=== PATIENT | male | born 1955 | race Hispanic/Latino ===

== ENCOUNTER 2016-11-28 19:30 | Emergency (ER) | payer OTHER ==
[2016-11-28 19:46] VITALS: BP 130/84; PULSE 80; RESP 18; TEMP 100.7; O2SAT 100
[2016-11-28] MEDS ORDERED: Sodium Chloride 0.9% 1,000 ML IV STA (20:09)
[2016-11-28 20:30] LABS: URINE BACTERIA OCC (<OCC); URINE BILIRUBIN NEGATIVE (NEGATIVE); URINE BLOOD LARGE (NEGATIVE); URINE CLARITY SLIGHTY-CLOUDY (Clear); URINE COLOR YELLOW (YELLOW); URINE GLUCOSE (UA) NEG (Normal); URINE LEUKOCYTE ESTERASE MOD Leu/uL (Negative); URINE NITRATE NEGATIVE (NEGATIVE); URINE PROTEIN 100 mg/dL (NEGATIVE); URINE UROBILINOGEN 0.2-1.0 mg/dL (0.2-1.0)
[2016-11-28] MEDS ORDERED: cefTRIAXone (Rocephin) 1 gm Inj ONE (20:34)
[2016-11-28 20:40] LABS: BASO # 0.1 K/uL (0.0-0.2); BASO % 0.4 % (0.0-2.0); EOS % 0.1 % (0.0-4.0); HEMOGLOBIN 13.8 g/dL (12.0-18.0); LYMPH # 1.7 K/uL (1.0-4.3); LYMPH % 10.1 % (20.0-40.0); MEAN CELL VOLUME 93.3 fl (80.0-94.0); MEAN CORPUSCULAR HEMOGLOBIN 30.9 pg (27.0-31.0); MEAN CORPUSCULAR HGB CONC 33.2 g/dL (33.0-37.0); MEAN PLATELET VOLUME 9.6 fl (7.2-11.7); MONO # 1.3 K/uL (0.0-0.8); NEUT # 13.5 K/uL (1.8-7.0); NEUT % 81.4 % (50.0-75.0); RBC 4.44 Mil/uL (4.40-5.90); RED CELL DISTRIBUTION WIDTH 13.5 % (11.5-14.5); WHITE BLOOD COUNT 16.5 K/uL (4.8-10.8)
--- NOTE | 2016-11-28 20:45 | ED PDOC ---
HPI: General Adult Time Seen by Provider: 11/28/16 19:52 Chief Complaint (Nursing): Male Genitourinary Chief Complaint (Provider): Fever, chills History Per: Patient History/Exam Limitations: no limitations Onset/Duration Of Symptoms: Days (1) Have you had recent travel within the past 21 days to any of the following countries: [place], [place], [place] or [place]?: No Current Symptoms Are (Timing): Still Present Additional History Per: Patient Additional Complaint(s): The patient is a 61yo male, presents to the ED for evaluation of subjective fever, chills for the past day. Patient states he has had a scheduled cystoscopy 4 days ago after which he was fine; patient reports his symptoms presented last night but denies any associated nausea, vomiting, diarrhea, abdominal pain, chest pain, dysuria, or shortness of breath. Patient has noticed that urine is darker than he previously noticed. Patient denies any other medical complaints. Of note, patient is currently taking Cialis for erectile dysfunction. Past Medical History Reviewed: Historical Data, Nursing Documentation, Vital Signs Vital Signs: Last Vital Signs Temp 100.7 F H 11/28/16 20:29 Pulse 80 11/28/16 19:42 Resp 18 11/28/16 19:42 BP 130/84 11/28/16 19:42 Pulse Ox 100 11/28/16 21:12 - Medical History PMH: No Chronic Diseases - Surgical History Other surgeries: cystoscopy - Family History Family History: States: Unknown Family Hx - Social History Current smoker - smoking cessation education provided: No Alcohol: Occasional Drugs: Denies - Home Medications Home Medications: Ambulatory Orders Medication Instructions Recorded Ciprofloxacin [Cipro] 500 mg PO Q12 #20 tab 11/28/16 - Allergies Allergies/Adverse Reactions: Allergies Allergy/AdvReac Type Severity Reaction Status Date / Time No Known Allergies Allergy Verified 11/28/16 20:01 Review of Systems Constitutional: Positive for: Fever, Chills Respiratory: Negative for: Shortness of Breath Gastrointestinal: Negative for: Nausea, Vomiting, Abdominal Pain, Diarrhea Physical Exam - Reviewed Nursing Documentation Reviewed: Yes Vital Signs Reviewed: Yes - Physical Exam Appears: Positive for: Well, Non-toxic, No Acute Distress Head Exam: Positive for: ATRAUMATIC, NORMAL INSPECTION, NORMOCEPHALIC Skin: Positive for: Normal Color Eye Exam: Positive for: Normal appearance Neck: Positive for: Normal, Supple Cardiovascular/Chest: Positive for: Regular Rate, Rhythm Respiratory: Positive for: Normal Breath Sounds. Negative for: Wheezing Gastrointestinal/Abdominal: Positive for: Normal Exam, Soft. Negative for: Tenderness Extremity: Positive for: Normal ROM. Negative for: Deformity, Swelling Neurologic/Psych: Positive for: Alert, Oriented - Laboratory Results Result Diagrams: 11/28/16 20:30 11/28/16 20:30 - ECG O2 Sat by Pulse Oximetry: 100 (RA) Pulse Ox Interpretation: Normal Medical Decision Making Medical Decision Making: Time: 1799 Impression: 61yo male w/ fever, chills in setting of recent cystoscopy Plan: -- Labs -- IV Fluids -- Urine dipstick Reassess Time: 2039 Urine dipstick shows urinary infection. Ordered IV Rocephin Time: 2110 Labs reviewed and show elevated white count. Patient informed of lab results and denies any flank pain, no tenderness upon exam. States he feels well enough for discharge home. Patient informed should he develop flank pain or his symptoms worsen, return to ED for further testing and possible admission. Patient agreeable to plan. Final diagnosis: UTI Scribe Attestation: Documented by La Nena Sheriff acting as a scribe for Po Lizama MD. Provider Attestation: All medical record entries made by the Scribe were at my direction and personally dictated by me. I have reviewed the chart and agree that the record accurately reflects my personal performance of the history, physical exam, medical decision making, and the department course for this patient. I have also personally directed, reviewed, and agree with the discharge instructions and disposition. Disposition - Clinical Impression Clinical Impression: Urinary tract infection - Disposition Disposition Time: 21:00 Condition: STABLE Prescriptions: Ciprofloxacin [Cipro] 500 mg PO Q12 #20 tab Instructions: Cystoscopy (GEN), Urinary Tract Infection in Men (ED)
[2016-11-28 20:48] LABS: ALB/GLOB RATIO 1.2 (1.0-2.1); ALBUMIN 4.2 g/dL (3.5-5.0); ALT/SGPT 36 U/L (21-72); AST/SGOT 24 U/L (17-59); BLOOD UREA NITROGEN 14 mg/dl (9-20); GFR AFRICAN-AMERICAN > 60; GFR NON-AFRICAN AMERICAN > 60
== END 2016-11-28 21:00 | disposition home or self-care (01) ==
LOC: H.ER 19:30
DX: N39.0 Urinary tract infection, site not specified (principal)

== ENCOUNTER 2016-12-01 13:14 | Inpatient (IN) | payer OTHER ==
[2016-12-01] MEDS ORDERED: Meropenem 1 GM in Sodium Chloride 0.9% 100 ML IVPB STA (13:31)
--- NOTE | 2016-12-01 14:11 | ED PDOC ---
HPI: General Adult Time Seen by Provider: 12/01/16 14:09 Chief Complaint (Nursing): Fever Chief Complaint (Provider): uti History Per: Patient (61 y/o male here with urinary discomfort developed after cystoscopy last week. Patient has had fevers/chills and was started on cipro in ED for uti. Patient notes persistent dysuria but notes improvement of fever. Has no h/o prior UTI. States cystoscopy was for investigation of ongoing hematuria for months. Patient was called today b/c urine cx results note resistance to cipro and many other antibiotics, with exception of imepenem/ tig/amikacin.) Past Medical History Reviewed: Historical Data, Nursing Documentation, Vital Signs Vital Signs: Last Vital Signs Temp 98.8 F 12/02/16 16:06 Pulse 55 L 12/02/16 16:06 Resp 18 12/02/16 16:06 BP 119/80 12/02/16 16:06 Pulse Ox 98 12/02/16 16:06 - Family History Family History: States: Unknown Family Hx - Home Medications Home Medications: Ambulatory Orders Medication Instructions Recorded Omeprazole 20 mg PO DAILY 12/01/16 Tadalafil [Cialis] 5 mg PO PRN PRN 12/01/16 Ertapenem 1gm in NS 50ml [Invanz] 1 gm IV DAILY #10 bag 12/02/16 - Allergies Allergies/Adverse Reactions: Allergies Allergy/AdvReac Type Severity Reaction Status Date / Time No Known Allergies Allergy Verified 11/28/16 20:01 Review of Systems ROS Statement: Except As Marked, All Systems Reviewed And Found Negative Physical Exam - Reviewed Nursing Documentation Reviewed: Yes Vital Signs Reviewed: Yes - Physical Exam Appears: Positive for: Well, Non-toxic, No Acute Distress Head Exam: Positive for: ATRAUMATIC, NORMAL INSPECTION, NORMOCEPHALIC Skin: Positive for: Normal Color, Warm, DRY Eye Exam: Positive for: EOMI, Normal appearance, PERRL ENT: Positive for: Normal ENT Inspection Neck: Positive for: Normal, Painless ROM Cardiovascular/Chest: Positive for: Regular Rate, Rhythm Respiratory: Positive for: CNT, Normal Breath Sounds Gastrointestinal/Abdominal: Positive for: Normal Exam, Bowel Sounds, Soft Back: Positive for: Normal Inspection Extremity: Positive for: Normal ROM Neurologic/Psych: Positive for: Alert, Oriented - Laboratory Results Result Diagrams: 12/02/16 06:26 12/02/16 06:26 - ECG O2 Sat by Pulse Oximetry: 100 - Progress ED Course And Treament: D/W DR. DARIUS CASTILLO MEROPENEM [address] ABD/PELVIS WITHOUT IV OR PO CONTRAST ORDERED FOR EVALUATION OF BUN/ CREATININE AND ONGOING HEMATURIA. D/W DR. KAUFMAN CARBIDE OPERATOR FOR [facility] WOULD LIKE NEPHROLOGY CONSULT. Medical Decision Making Medical Decision Making: Time: 16:22 --Abdomen/pelvis CT FINDINGS: There is limited evaluation of the solid organs without the administration of IV contrast. LOWER THORAX: Bibasilar atelectasis. No visible pleural effusion or pneumothorax. Small hiatal hernia/ distal esophageal wall thickening. LIVER: Unremarkable unenhanced appearance. GALLBLADDER AND BILE DUCTS: Unremarkable unenhanced appearance. PANCREAS: Unremarkable unenhanced appearance. SPLEEN: Unremarkable unenhanced appearance. ADRENALS: Unremarkable unenhanced appearance. KIDNEYS AND URETERS: No hydronephrosis or obstructing renal calculus. BLADDER: Mild wall thickening; correlate with urinalysis in order to assess for possibility of cystitis. REPRODUCTIVE: The prostate gland measures approximately 4.1 x 4.8 cm. APPENDIX: The presumed appendix appears within normal limits of caliber. No secondary signs of acute appendicitis. BOWEL: The stomach is nondistended. Lack of oral contrast limits evaluation for bowel pathology. The bowel loops appear within normal limits of caliber without evidence of intestinal obstruction. Diverticulosis without CT evidence of acute diverticulitis. Moderate constipation. PERITONEUM: No significant free fluid. No definite free air. LYMPH NODES: No bulky lymphadenopathy identified. VASCULATURE: No aortic aneurysm. BONES: Multilevel degenerative changes. Mild scoliosis. Grade 1 anterolisthesis of L5 on S1. Vacuum disc phenomenon at L4-L5 and L5-S1. OTHER FINDINGS: Tiny fat containing umbilical hernia. IMPRESSION: Mild urinary bladder wall thickening ; correlate with urinalysis in order to assess for possibility of cystitis. Enlarged prostate gland. Correlate with PSA. Diverticulosis without CT evidence of acute diverticulitis. Additional findings as above. Disposition - Clinical Impression Clinical Impression: Urinary tract infection - Patient ED Disposition Is Patient to be Admitted: Yes - Disposition Disposition Time: 16:20 Condition: GOOD - Pt Status Changed To: Hospital Disposition Of: Inpatient - Admit Certification Admit to Inpatient:: After my assessment, the patient will require hospitalization for at least two midnights. This is because of the severity of symptoms shown, intensity of services needed, and/or the medical risk in this patient being treated as an outpatient.
[2016-12-01 14:20] LABS: VENOUS BLOOD GAS BASE EXCESS 4.2 mmol/L (0.0-2.0); VENOUS BLOOD GAS PCO2 55 mmHg (40-60); VENOUS BLOOD GAS PO2 16 mm/Hg (30-55); VENOUS BLOOD PH 7.36 (7.32-7.43)
[2016-12-01 15:03] LABS: BASO # 0.1 K/uL (0.0-0.2); BASO % 0.6 % (0.0-2.0); EOS # 0.2 K/uL (0.0-0.7); EOS % 1.8 % (0.0-4.0); LYMPH # 1.9 K/uL (1.0-4.3); LYMPH % 16.8 % (20.0-40.0); MEAN CELL VOLUME 93.4 fl (80.0-94.0); MEAN CORPUSCULAR HEMOGLOBIN 31.6 pg (27.0-31.0); MEAN CORPUSCULAR HGB CONC 33.8 g/dL (33.0-37.0); MEAN PLATELET VOLUME 9.9 fl (7.2-11.7); MONO # 1.1 K/uL (0.0-0.8); MONO % 10.1 % (0.0-10.0); NEUT # 7.8 K/uL (1.8-7.0); NEUT % 70.7 % (50.0-75.0); RBC 4.12 Mil/uL (4.40-5.90); RED CELL DISTRIBUTION WIDTH 13.3 % (11.5-14.5); WHITE BLOOD COUNT 11.1 K/uL (4.8-10.8)
[2016-12-01 15:12] LABS: ALB/GLOB RATIO 1.1 (1.0-2.1); ALBUMIN 4.1 g/dL (3.5-5.0); CALCIUM 9.6 mg/dL (8.4-10.2)
[2016-12-01] MEDS ORDERED: Sodium Chloride 0.9% 1,000 ML IV STA (15:16)
[2016-12-01 15:35] LABS: URINE BACTERIA RARE (<OCC); URINE BILIRUBIN NEGATIVE (NEGATIVE); URINE BLOOD LARGE (NEGATIVE); URINE CLARITY CLOUDY (Clear); URINE COLOR YELLOW (YELLOW); URINE GLUCOSE (UA) NEG (Normal); URINE LEUKOCYTE ESTERASE TRACE Leu/uL (Negative); URINE NITRATE NEGATIVE (NEGATIVE); URINE PROTEIN 100 mg/dL (NEGATIVE); URINE UROBILINOGEN 0.2-1.0 mg/dL (0.2-1.0)
--- NOTE | 2016-12-01 16:35 | CT ---
PROCEDURE: CT Abdomen and Pelvis without Oral or IV contrast. HISTORY: h/o intermittent hematuria/ UTI this week COMPARISON: None available. TECHNIQUE: Contiguous axial images of the abdomen and pelvis. No oral or IV contrast administered. Coronal and Sagittal reformats generated and reviewed. Radiation dose: Total exam DLP = 564.78 mGy-cm. This CT exam was performed using one or more of the following dose reduction techniques: Automated exposure control, adjustment of the mA and/or kV according to patient size, and/or use of iterative reconstruction technique. FINDINGS: There is limited evaluation of the solid organs without the administration of IV contrast. LOWER THORAX: Bibasilar atelectasis. No visible pleural effusion or pneumothorax. Small hiatal hernia/ distal esophageal wall thickening. LIVER: Unremarkable unenhanced appearance. GALLBLADDER AND BILE DUCTS: Unremarkable unenhanced appearance. PANCREAS: Unremarkable unenhanced appearance. SPLEEN: Unremarkable unenhanced appearance. ADRENALS: Unremarkable unenhanced appearance. KIDNEYS AND URETERS: No hydronephrosis or obstructing renal calculus. BLADDER: Mild wall thickening; correlate with urinalysis in order to assess for possibility of cystitis. REPRODUCTIVE: The prostate gland measures approximately 4.1 x 4.8 cm. APPENDIX: The presumed appendix appears within normal limits of caliber. No secondary signs of acute appendicitis. BOWEL: The stomach is nondistended. Lack of oral contrast limits evaluation for bowel pathology. The bowel loops appear within normal limits of caliber without evidence of intestinal obstruction. Diverticulosis without CT evidence of acute diverticulitis. Moderate constipation. PERITONEUM: No significant free fluid. No definite free air. LYMPH NODES: No bulky lymphadenopathy identified. VASCULATURE: No aortic aneurysm. BONES: Multilevel degenerative changes. Mild scoliosis. Grade 1 anterolisthesis of L5 on S1. Vacuum disc phenomenon at L4-L5 and L5-S1. OTHER FINDINGS: Tiny fat containing umbilical hernia. IMPRESSION: Mild urinary bladder wall thickening ; correlate with urinalysis in order to assess for possibility of cystitis. Enlarged prostate gland. Correlate with PSA. Diverticulosis without CT evidence of acute diverticulitis. Additional findings as above.
[2016-12-02] MEDS: Meropenem 1 GM in Sodium Chloride 0.9% 100 ML IVPB SCH ×2 (02:09→09:08)
[2016-12-02 06:49] LABS: HEMOGLOBIN 12.4 g/dL (12.0-18.0); MEAN CORPUSCULAR HEMOGLOBIN 32.1 pg (27.0-31.0); MEAN CORPUSCULAR HGB CONC 34.2 g/dL (33.0-37.0); RBC 3.87 Mil/uL (4.40-5.90); RED CELL DISTRIBUTION WIDTH 12.9 % (11.5-14.5); WHITE BLOOD COUNT 8.9 K/uL (4.8-10.8)
[2016-12-02 08:19] LABS: ALB/GLOB RATIO 1.1 (1.0-2.1); ALBUMIN 3.4 g/dL (3.5-5.0); CALCIUM 8.7 mg/dL (8.4-10.2)
[2016-12-02] MEDS ORDERED: Pantoprazole 20 mg EC Tab PO SCH (09:00)
--- NOTE | 2016-12-02 09:01 | CP.PCM.HP ---
History of Present Illness - History of Present Illness History of Present Illness: pt admitted for esbl in previous urine c/s. at present is w/o complaints. no f/c , n/v/d. admission bun/cr was elev but am bun/cr wnl. pts uti was 2 to cystoscopy which was completed for hematuria. Present on Admission - Present on Admission Any Indicators Present on Admission: No Review of Systems - Genitourinary Genitourinary: As Per HPI Past Patient History - Infectious Disease Hx of Infectious Diseases: None - Past Medical History & Family History Past Medical History?: No - Past Social History Smoking Status: Never Smoked - CARDIAC Hx Cardiac Disorders: No - NEUROLOGICAL Hx Neurological Disorder: No - HEMATOLOGICAL/ONCOLOGICAL Hx Blood Disorders: No - MUSCULOSKELETAL/RHEUMATOLOGICAL Hx Falls: No - GASTROINTESTINAL Hx Gastroesophageal Reflux: Yes - PSYCHIATRIC Hx Substance Use: Yes Meds Allergies/Adverse Reactions: Allergies Allergy/AdvReac Type Severity Reaction Status Date / Time No Known Allergies Allergy Verified 11/28/16 20:01 Physical Exam - Constitutional Appears: Well, Non-toxic, No Acute Distress - Head Exam Head Exam: ATRAUMATIC, NORMAL INSPECTION, NORMOCEPHALIC - Eye Exam Eye Exam: EOMI, Normal appearance, PERRL Pupil Exam: NORMAL ACCOMODATION, PERRL - ENT Exam ENT Exam: Mucous Membranes Moist, Normal Exam - Neck Exam Neck exam: Positive for: Normal Inspection - Respiratory Exam Respiratory Exam: Clear to Auscultation Bilateral, NORMAL BREATHING PATTERN - Cardiovascular Exam Cardiovascular Exam: REGULAR RHYTHM, RRR, +S1, +S2 - GI/Abdominal Exam GI & Abdominal Exam: Normal Bowel Sounds, Soft. absent: Tenderness - Extremities Exam Extremities exam: Positive for: normal inspection - Back Exam Back exam: NORMAL INSPECTION - Neurological Exam Neurological exam: Alert, CN II-XII Intact, Normal Gait, Oriented x3, Reflexes Normal - Psychiatric Exam Psychiatric exam: Normal Affect, Normal Mood - Skin Skin Exam: Dry, Intact, Normal Color, Warm Results - Vital Signs Recent Vital Signs: Last Vital Signs Temp 98 F 12/02/16 07:46 Pulse 54 L 12/02/16 07:46 Resp 18 12/02/16 07:46 BP 121/81 12/02/16 07:46 Pulse Ox 98 12/02/16 07:46 - Labs Result Diagrams: 12/02/16 06:26 12/02/16 06:26 Labs: Laboratory Results - last 24 hr 12/02/16 12/02/16 06:26 06:26 WBC 8.9 RBC 3.87 L Hgb 12.4 Hct 36.3 MCV 94.0 MCH 32.1 H MCHC 34.2 RDW 12.9 Plt Count 163 Sodium 143 Potassium 3.9 Chloride 108 H Carbon Dioxide 26 Anion Gap 13 BUN 20 Creatinine 1.5 Est GFR ( Amer) 58 Est GFR (Non-Af Amer) 48 Random Glucose 85 Calcium 8.7 Total Bilirubin 0.5 AST 19 ALT 29 Alkaline Phosphatase 44 Total Protein 6.5 Albumin 3.4 L Globulin 3.1 Albumin/Globulin Ratio 1.1 Assessment & Plan (1) DVT prophylaxis Assessment and Plan: scd anad ae hose ambualtion Status: Acute (2) Urinary tract infection Assessment and Plan: merrem for esbl, f/u repaat c/s id and nephro consult ivf Status: Acute (3) Dehydration Assessment and Plan: bun/cr normalized, ivf Status: Acute Decision To Admit - Pt Status Changed To: Hospital Disposition Of: Inpatient - Admit Certification Admit to Inpatient:: After my assessment, the patient will require hospitalization for at least two midnights. This is because of the severity of symptoms shown, intensity of services needed, and/or the medical risk in this patient being treated as an outpatient. - . Bed Request Type: Med/Surg Admitting Physician: Liu Lopez
--- NOTE | 2016-12-02 09:23 | CP.PCM.CON ---
History of Present Illness - History of Present Illness History of Present Illness: Patient is a 61 years of age gentleman, I was called to see him for abnormal kidney function rising BUN/creatinine. This patient who had cystoscope last week and subsequently patient developed fever and malaise weakness for which she was admitted and was fond to have high BUN/creatinine and infection. Patient treated with appropriate antibiotics in the hospital now. He was treated with outpatient antibiotics but patient took one dose and also pain medication 1 or 2 doses he does not know the name Past medical history not significant Social history appears to be not significant except what has been mentioned Review of system as noted Review of Systems - EENT Eyes: As Per HPI Ears: As Per HPI - Cardiovascular Cardiovascular: absent: Chest Pain, Dyspnea, Edema - Respiratory Respiratory: absent: Cough, Dyspnea, Dyspnea on Exertion - Gastrointestinal Gastrointestinal: absent: Abdominal Pain, Coffee Ground Emesis - Genitourinary Genitourinary: Change in Urinary Stream. absent: Urinary Urgency - Neurological Neurological: absent: Abnormal Gait, Confusion, Syncope - Endocrine Endocrine: As Per HPI - Hematologic/Lymphatic Hematologic: absent: Easy Bruising Past Patient History - Infectious Disease Hx of Infectious Diseases: None - Past Medical History & Family History Past Medical History?: No - Past Social History Smoking Status: Never Smoked - CARDIAC Hx Cardiac Disorders: No - NEUROLOGICAL Hx Neurological Disorder: No - HEMATOLOGICAL/ONCOLOGICAL Hx Blood Disorders: No - MUSCULOSKELETAL/RHEUMATOLOGICAL Hx Falls: No - GASTROINTESTINAL Hx Gastroesophageal Reflux: Yes - PSYCHIATRIC Hx Substance Use: Yes Meds Allergies/Adverse Reactions: Allergies Allergy/AdvReac Type Severity Reaction Status Date / Time No Known Allergies Allergy Verified 11/28/16 20:01 - Medications Medications: Current Medications Acetaminophen (Tylenol 325mg Tab) 650 mg PO Q4 PRN PRN Reason: Pain, moderate (4-7) Acetaminophen (Tylenol 325mg Tab) 650 mg PO Q4 PRN PRN Reason: Fever >100.4 F Meropenem 1 gm/ Sodium (Chloride) 100 mls @ 100 mls/hr IVPB BID [facility] Last Admin: 12/02/16 09:08 Dose: 100 mls/hr Pantoprazole Sodium (Protonix Ec Tab) 20 mg PO DAILY [facility] Last Admin: 12/02/16 09:08 Dose: 20 mg Physical Exam - Constitutional Appears: No Acute Distress - ENT Exam ENT Exam: Mucous Membranes Moist - Respiratory Exam Respiratory Exam: NORMAL BREATHING PATTERN. absent: Chest Wall Tenderness - Cardiovascular Exam Cardiovascular Exam: REGULAR RHYTHM - GI/Abdominal Exam GI & Abdominal Exam: Normal Bowel Sounds - Extremities Exam Extremities exam: Negative for: calf tenderness, pedal edema - Back Exam Back exam: absent: CVA tenderness (L), CVA tenderness (R) - Neurological Exam Neurological exam: Alert Results - Vital Signs Recent Vital Signs: Last Vital Signs Temp 98 F 12/02/16 07:46 Pulse 54 L 12/02/16 07:46 Resp 18 12/02/16 07:46 BP 121/81 12/02/16 07:46 Pulse Ox 98 12/02/16 07:46 - Labs Result Diagrams: 12/02/16 06:26 12/02/16 06:26 Labs: Laboratory Results - last 24 hr 12/02/16 12/02/16 06:26 06:26 WBC 8.9 RBC 3.87 L Hgb 12.4 Hct 36.3 MCV 94.0 MCH 32.1 H MCHC 34.2 RDW 12.9 Plt Count 163 Sodium 143 Potassium 3.9 Chloride 108 H Carbon Dioxide 26 Anion Gap 13 BUN 20 Creatinine 1.5 Est GFR ( Amer) 58 Est GFR (Non-Af Amer) 48 Random Glucose 85 Calcium 8.7 Total Bilirubin 0.5 AST 19 ALT 29 Alkaline Phosphatase 44 Total Protein 6.5 Albumin 3.4 L Globulin 3.1 Albumin/Globulin Ratio 1.1 Assessment & Plan (1) Acute kidney injury Assessment and Plan: Patient most likely has acute kidney injury from urosepsis and he appeared to be recovering and responded to antibiotics Patient requesting to go home and he can have the appropriate antibiotics as outpatient Repeat kidney function and BMP in about 2 days just to make sure as outpatient if he decides to go home. Status: Acute (2) Urinary tract infection Status: Acute
--- NOTE | 2016-12-02 10:56 | CP.PCM.CON ---
History of Present Illness - History of Present Illness History of Present Illness: Infectious Disease Consultation Note- asked to see this patient fro ESBL UTI. HPI- Patient is a pleasant 61 year old male with no significant pmh who states since april of last year he has been having microscopic hemature and has been having w/u done for this by his urologist in [facility] and all w/u has so far been negative and he states that a week ago he had cystoscopy done and he as told it did not reveal anything bad and then few days after the procedure he developed malaise, fever and chills and some dysurea and hence he came to ED here and was found to have + Ua and as d/c on oral cipro but then pt. sattes he was called by ED to come back to be admitted bc his urine cx had grown ESBL klebsiella and also pt. states his symptoms had not improved at all on the oral cipro and he continued to have dysurea and chills . Pt. denies any h/o kidney stones and denies having any h/o UTI in the past. Pt. denies any fever or chills now and state he does not have any abdomen or flank pain but he still has slight dysurea. Review of Systems - Review of Systems Review of Systems: ROS- denies any fever or chills now but had it at home for past 3 days, denies any N/ V, denies any cough, denies any sob, denies any chest pain, denies any abd. pain , denies any back pain, + dysurea, had malaise but states has resolved denies any diarrhea denies any sick contacts Past Patient History - Infectious Disease Hx of Infectious Diseases: None - Past Medical History & Family History Past Medical History?: No - Past Social History Smoking Status: Never Smoked Alcohol: Social Home Situation {Lives}: With Family - CARDIAC Hx Cardiac Disorders: No - PULMONARY Hx Respiratory Disorders: No - NEUROLOGICAL Hx Neurological Disorder: No - HEENT Hx HEENT Problems: No - RENAL Hx Chronic Kidney Disease: No - HEMATOLOGICAL/ONCOLOGICAL Hx Blood Disorders: No - MUSCULOSKELETAL/RHEUMATOLOGICAL Hx Falls: No - GASTROINTESTINAL Hx Gastroesophageal Reflux: Yes - PSYCHIATRIC Hx Substance Use: Yes Meds Home Medications: Home Medication List Medication Instructions Recorded Confirmed Type Ertapenem 1gm in NS 50ml [Invanz] 1 gm IV DAILY #10 bag 12/02/16 Rx Allergies/Adverse Reactions: Allergies Allergy/AdvReac Type Severity Reaction Status Date / Time No Known Allergies Allergy Verified 11/28/16 20:01 - Medications Medications: Current Medications Acetaminophen (Tylenol 325mg Tab) 650 mg PO Q4 PRN PRN Reason: Pain, moderate (4-7) Acetaminophen (Tylenol 325mg Tab) 650 mg PO Q4 PRN PRN Reason: Fever >100.4 F Meropenem 1 gm/ Sodium (Chloride) 100 mls @ 100 mls/hr IVPB BID [facility] Last Admin: 12/02/16 09:08 Dose: 100 mls/hr Pantoprazole Sodium (Protonix Ec Tab) 20 mg PO DAILY [facility] Last Admin: 12/02/16 09:08 Dose: 20 mg Physical Exam - Constitutional Appears: Non-toxic, No Acute Distress - Head Exam Head Exam: ATRAUMATIC - Eye Exam Eye Exam: EOMI, PERRL - ENT Exam ENT Exam: Normal Oropharynx - Neck Exam Neck exam: Positive for: Full Rom - Respiratory Exam Respiratory Exam: Clear to Auscultation Bilateral, NORMAL BREATHING PATTERN - Cardiovascular Exam Cardiovascular Exam: RRR, +S1, +S2 - GI/Abdominal Exam GI & Abdominal Exam: Normal Bowel Sounds, Soft Additional comments: NT, ND No CVA tenderness b/l - Extremities Exam Extremities exam: Positive for: normal inspection - Neurological Exam Neurological exam: Alert, Oriented x3 Results - Vital Signs Recent Vital Signs: Last Vital Signs Temp 98 F 12/02/16 07:46 Pulse 54 L 12/02/16 07:46 Resp 18 12/02/16 07:46 BP 121/81 12/02/16 07:46 Pulse Ox 98 12/02/16 07:46 - Labs Result Diagrams: 12/02/16 06:26 12/02/16 06:26 Labs: Laboratory Results - last 24 hr 12/02/16 12/02/16 06:26 06:26 WBC 8.9 RBC 3.87 L Hgb 12.4 Hct 36.3 MCV 94.0 MCH 32.1 H MCHC 34.2 RDW 12.9 Plt Count 163 Sodium 143 Potassium 3.9 Chloride 108 H Carbon Dioxide 26 Anion Gap 13 BUN 20 Creatinine 1.5 Est GFR ( Amer) 58 Est GFR (Non-Af Amer) 48 Random Glucose 85 Calcium 8.7 Total Bilirubin 0.5 AST 19 ALT 29 Alkaline Phosphatase 44 Total Protein 6.5 Albumin 3.4 L Globulin 3.1 Albumin/Globulin Ratio 1.1 Laboratory Results - last 72 hr 12/01/16 12/01/16 12/01/16 14:12 14:58 14:58 WBC 11.1 H RBC 4.12 L Hgb 13.0 Hct 38.5 MCV 93.4 MCH 31.6 H MCHC 33.8 RDW 13.3 Plt Count 175 MPV 9.9 Neut % (Auto) 70.7 Lymph % (Auto) 16.8 L [place] % (Auto) 10.1 H Eos % (Auto) 1.8 Baso % (Auto) 0.6 Neut # 7.8 H Lymph # 1.9 [place] # 1.1 H Eos # 0.2 Baso # 0.1 pO2 16 L VBG pH 7.36 VBG pCO2 55 VBG HCO3 26.1 VBG Total CO2 32.8 H VBG O2 Sat (Calc) 28.1 L VBG Base Excess 4.2 H VBG Potassium 4.1 Sodium 140.0 142 Chloride 102.0 103 Glucose 104 Lactate 1.0 FiO2 21.0 Potassium 4.0 Carbon Dioxide 28 Anion Gap 15 BUN 27 H Creatinine 1.7 H Est GFR ( Amer) 50 Est GFR (Non-Af Amer) 41 Random Glucose 104 Calcium 9.6 Total Bilirubin 0.7 AST 24 ALT 28 Alkaline Phosphatase 53 Total Protein 7.7 Albumin 4.1 Globulin 3.6 Albumin/Globulin Ratio 1.1 Venous Blood Potassium 4.1 Urine Color Urine Clarity Urine pH Ur Specific [place] Urine Protein Urine Glucose (UA) Urine Ketones Urine Blood Urine Nitrate Urine Bilirubin Urine Urobilinogen Ur Leukocyte Esterase Urine RBC (Auto) Urine Microscopic WBC Urine Bacteria Urine Yeast (Budding) 12/01/16 12/02/16 12/02/16 14:58 06:26 06:26 WBC 8.9 RBC 3.87 L Hgb 12.4 Hct 36.3 MCV 94.0 MCH 32.1 H MCHC 34.2 RDW 12.9 Plt Count 163 MPV Neut % (Auto) Lymph % (Auto) [place] % (Auto) Eos % (Auto) Baso % (Auto) Neut # Lymph # [place] # Eos # Baso # pO2 VBG pH VBG pCO2 VBG HCO3 VBG Total CO2 VBG O2 Sat (Calc) VBG Base Excess VBG Potassium Sodium 143 Chloride 108 H Glucose Lactate FiO2 Potassium 3.9 Carbon Dioxide 26 Anion Gap 13 BUN 20 Creatinine 1.5 Est GFR ( Amer) 58 Est GFR (Non-Af Amer) 48 Random Glucose 85 Calcium 8.7 Total Bilirubin 0.5 AST 19 ALT 29 Alkaline Phosphatase 44 Total Protein 6.5 Albumin 3.4 L Globulin 3.1 Albumin/Globulin Ratio 1.1 Venous Blood Potassium Urine Color Yellow Urine Clarity Cloudy Urine pH 6.0 Ur Specific [place] 1.020 Urine Protein 100 Urine Glucose (UA) Neg Urine Ketones Negative Urine Blood Large Urine Nitrate Negative Urine Bilirubin Negative Urine Urobilinogen 0.2-1.0 Ur Leukocyte Esterase Trace Urine RBC (Auto) 153 H Urine Microscopic WBC 78 H Urine Bacteria Rare Urine Yeast (Budding) Mod H Microbiology 11/28/16 20:15 Urine,Clean Catch Urine Culture - Final Klebsiella Pneumoniae Ssp Pneu 11/28/16 20:30 Blood-Venous Blood Culture - Preliminary 11/28/16 20:30 Blood-Venous NO GROWTH AFTER 3 DAYS 11/28/16 04:15 Blood-Venous Blood Culture - Preliminary 11/28/16 04:15 Blood-Venous NO GROWTH AFTER 3 DAYS Accession No. : [id number] Patient Name / ID : REMEDIOS BANKS / [id number] Exam Date : 12/01/2016 16:03:08 ( Approved ) Study Comment : Sex / Age : M / 61Y Creator : ELVIRA SOTO Dictator : Sagrario Mtz MD Grip Wrapper : Analyst Programmer : Sagrario Mtz MD Approver2 : Report Date : 12/01/2016 16:21:02 My Comment : PROCEDURE: CT Abdomen and Pelvis without Oral or IV contrast. HISTORY: h/o intermittent hematuria/ UTI this week COMPARISON: None available. TECHNIQUE: Contiguous axial images of the abdomen and pelvis. No oral or IV contrast administered. Coronal and Sagittal reformats generated and reviewed. Radiation dose: Total exam DLP = 564.78 mGy-cm. This CT exam was performed using one or more of the following dose reduction techniques: Automated exposure control, adjustment of the mA and/or kV according to patient size, and/or use of iterative reconstruction technique. FINDINGS: There is limited evaluation of the solid organs without the administration of IV contrast. LOWER THORAX: Bibasilar atelectasis. No visible pleural effusion or pneumothorax. Small hiatal hernia/ distal esophageal wall thickening. LIVER: Unremarkable unenhanced appearance. GALLBLADDER AND BILE DUCTS: Unremarkable unenhanced appearance. PANCREAS: Unremarkable unenhanced appearance. SPLEEN: Unremarkable unenhanced appearance. ADRENALS: Unremarkable unenhanced appearance. KIDNEYS AND URETERS: No hydronephrosis or obstructing renal calculus. BLADDER: Mild wall thickening; correlate with urinalysis in order to assess for possibility of cystitis. REPRODUCTIVE: The prostate gland measures approximately 4.1 x 4.8 cm. APPENDIX: The presumed appendix appears within normal limits of caliber. No secondary signs of acute appendicitis. BOWEL: The stomach is nondistended. Lack of oral contrast limits evaluation for bowel pathology. The bowel loops appear within normal limits of caliber without evidence of intestinal obstruction. Diverticulosis without CT evidence of acute diverticulitis. Moderate constipation. PERITONEUM: No significant free fluid. No definite free air. LYMPH NODES: No bulky lymphadenopathy identified. VASCULATURE: No aortic aneurysm. BONES: Multilevel degenerative changes. Mild scoliosis. Grade 1 anterolisthesis of L5 on S1. Vacuum disc phenomenon at L4-L5 and L5-S1. OTHER FINDINGS: Tiny fat containing umbilical hernia. IMPRESSION: Mild urinary bladder wall thickening ; correlate with urinalysis in order to assess for possibility of cystitis. Enlarged prostate gland. Correlate with PSA. Diverticulosis without CT evidence of acute diverticulitis. Additional findings as above. Assessment & Plan (1) Urinary tract infection Status: Acute (2) Infection due to ESBL-producing Klebsiella pneumoniae Status: Acute - Assessment and Plan (Free Text) Assessment: A/P- 61 year old male UTI with ESBL klebsiella pneumonia post cystoscopy. not septic. has normal wbc now but had wbc of 16,000 as per [facility] records on 11/28 current UA only trace LE and negative nitrates but previous UA had moderate LE so has improved. afebrile here CT report noted- no hydro or acute findings as per radiologist's report but has enlarged prostate . plan- advise to continue with IV meropenem for the ESBL klebsiella pneumonia UTI. day #2 today. await urine and blood cx results from this admission. since pt. is afebrile and normal wbc count and symptosm are much improved he can be d/c on home IV abx once picc line is placed. would advise total of 10 days of IV abx for this ESBL UTI. called micro and as per micro the ESBL klebsiella in urine is also sensitive to ertapenem. hence can be d/c home on IV ertapenem 1 gram daily for 10 days. advise to f/u with his urologist . advise to have repeat UA and urine cx done at the completion of the abx as outpatient. advised pt. if he develops any fever or chills or any dysurea again to return to ED. all above d/w patient at length and he verbalizes full understanding of all above and agrees with above plan of care. all above d/w Darwin and MADHAV yeboah as well. Thank you for allowing me to take part in the care of this patient.
[2016-12-02] MEDS ORDERED: Lidocaine 1% Inj (20ml) ONE (12:48)
--- NOTE | 2016-12-02 13:07 | PCM.SURG1 ---
Surgeon's Initial Post Op Note - Surgeon's Notes Surgeon: Agapito Hyatt MD Cad Administrator: None Type of Anesthesia: Local Pre-Operative Diagnosis: Infection Operative Findings: Patent left basilic vein Post-Operative Diagnosis: Infection Operation Performed: Single lumen picc placement left basilic vein, 39 cm. Tip in SVC. Specimen/Specimens Removed: None Estimated Blood Loss: EBL {In ML}: 2 Blood Products Given: N/A Drains Used: No Drains Post-Op Condition: Fair Date of Surgery/Procedure: 12/02/16 Time of Surgery/Procedure: 13:05
[2016-12-02 16:06] VITALS: BP 119/80; PULSE 55; RESP 18; TEMP 98.8
--- NOTE | 2016-12-02 17:49 | CP.PCM.DIS ---
Provider - Provider Date of Admission: 12/01/16 16:20 Attending physician: Liu Lopez MD Time Spent in preparation of Discharge (in minutes): 15 Diagnosis - Discharge Diagnosis (1) DVT prophylaxis Status: Acute (2) Urinary tract infection Status: Acute (3) Dehydration Status: Acute Hospital Course - Lab Results Lab Results: Most Recent Lab Values WBC 8.9 K/uL (4.8-10.8) 12/02/16 06:26 RBC 3.87 Mil/uL (4.40-5.90) L 12/02/16 06:26 Hgb 12.4 g/dL (12.0-18.0) 12/02/16 06:26 Hct 36.3 % (35.0-51.0) 12/02/16 06:26 MCV 94.0 fl (80.0-94.0) 12/02/16 06:26 MCH 32.1 pg (27.0-31.0) H 12/02/16 06:26 MCHC 34.2 g/dL (33.0-37.0) 12/02/16 06:26 RDW 12.9 % (11.5-14.5) 12/02/16 06:26 Plt Count 163 K/uL (130-400) 12/02/16 06:26 MPV 9.9 fl (7.2-11.7) 12/01/16 14:58 Neut % (Auto) 70.7 % (50.0-75.0) 12/01/16 14:58 Lymph % (Auto) 16.8 % (20.0-40.0) L 12/01/16 14:58 [place] % (Auto) 10.1 % (0.0-10.0) H 12/01/16 14:58 Eos % (Auto) 1.8 % (0.0-4.0) 12/01/16 14:58 Baso % (Auto) 0.6 % (0.0-2.0) 12/01/16 14:58 Neut # 7.8 K/uL (1.8-7.0) H 12/01/16 14:58 Lymph # 1.9 K/uL (1.0-4.3) 12/01/16 14:58 [place] # 1.1 K/uL (0.0-0.8) H 12/01/16 14:58 Eos # 0.2 K/uL (0.0-0.7) 12/01/16 14:58 Baso # 0.1 K/uL (0.0-0.2) 12/01/16 14:58 pO2 16 mm/Hg (30-55) L 12/01/16 14:12 VBG pH 7.36 (7.32-7.43) 12/01/16 14:12 VBG pCO2 55 mmHg (40-60) 12/01/16 14:12 VBG HCO3 26.1 mmol/L 12/01/16 14:12 VBG Total CO2 32.8 mmol/L (22-28) H 12/01/16 14:12 VBG O2 Sat (Calc) 28.1 % (40-65) L 12/01/16 14:12 VBG Base Excess 4.2 mmol/L (0.0-2.0) H 12/01/16 14:12 VBG Potassium 4.1 mmol/L (3.6-5.2) 12/01/16 14:12 Sodium 140.0 mmol/L (132-148) 12/01/16 14:12 Chloride 102.0 mmol/L (98-107) 12/01/16 14:12 Glucose 104 mg/dL (75-110) 12/01/16 14:12 Lactate 1.0 mmol/L (0.7-2.1) 12/01/16 14:12 FiO2 21.0 % 12/01/16 14:12 Sodium 143 mmol/l (132-148) 12/02/16 06:26 Potassium 3.9 MMOL/L (3.6-5.0) 12/02/16 06:26 Chloride 108 mmol/L (98-107) H 12/02/16 06:26 Carbon Dioxide 26 mmol/L (22-30) 12/02/16 06:26 Anion Gap 13 (10-20) 12/02/16 06:26 BUN 20 mg/dl (9-20) 12/02/16 06:26 Creatinine 1.5 mg/dL (0.8-1.5) 12/02/16 06:26 Est GFR ( Amer) 58 12/02/16 06:26 Est GFR (Non-Af Amer) 48 12/02/16 06:26 Random Glucose 85 mg/dL (75-110) 12/02/16 06:26 Calcium 8.7 mg/dL (8.4-10.2) 12/02/16 06:26 Total Bilirubin 0.5 mg/dl (0.2-1.3) 12/02/16 06:26 AST 19 U/L (17-59) 12/02/16 06:26 ALT 29 U/L (21-72) 12/02/16 06:26 Alkaline Phosphatase 44 U/L (38-126) 12/02/16 06:26 Total Protein 6.5 G/DL (6.3-8.2) 12/02/16 06:26 Albumin 3.4 g/dL (3.5-5.0) L 12/02/16 06:26 Globulin 3.1 gm/dL (2.2-3.9) 12/02/16 06:26 Albumin/Globulin Ratio 1.1 (1.0-2.1) 12/02/16 06:26 Venous Blood Potassium 4.1 mmol/L (3.6-5.2) 12/01/16 14:12 Urine Color Yellow (YELLOW) 12/01/16 14:58 Urine Clarity Cloudy (Clear) 12/01/16 14:58 Urine pH 6.0 (5.0-8.0) 12/01/16 14:58 Ur Specific [place] 1.020 (1.003-1.030) 12/01/16 14:58 Urine Protein 100 mg/dL (NEGATIVE) 12/01/16 14:58 Urine Glucose (UA) Neg mg/dL (Normal) 12/01/16 14:58 Urine Ketones Negative mg/dL (NEGATIVE) 12/01/16 14:58 Urine Blood Large (NEGATIVE) 12/01/16 14:58 Urine Nitrate Negative (NEGATIVE) 12/01/16 14:58 Urine Bilirubin Negative (NEGATIVE) 12/01/16 14:58 Urine Urobilinogen 0.2-1.0 mg/dL (0.2-1.0) 12/01/16 14:58 Ur Leukocyte Esterase Trace [place]quel/uL (Negative) 12/01/16 14:58 Urine RBC (Auto) 153 /hpf (0-3) H 12/01/16 14:58 Urine Microscopic WBC 78 /hpf (0-5) H 12/01/16 14:58 Urine Bacteria Rare (<OCC) 12/01/16 14:58 Urine Yeast (Budding) Mod /hpf (NEGATIVE) H 12/01/16 14:58 Discharge Exam - Head Exam Head Exam: ATRAUMATIC Discharge Plan - Discharge Medications Prescriptions: Ertapenem 1gm in NS 50ml [Invanz] 1 gm IV DAILY #10 bag - Follow Up Plan Condition: GOOD Disposition: HOME/ ROUTINE Instructions: Ertapenem (By injection), Urinary Tract Infection in Men (DC), Peripherally Inserted Central Catheters and Midline Catheters (DC) Additional Instructions: follow up with urologist ([facility]) post discharge urinalysis and culture and sensitivity in 10days [facility] [phone] final dx-urosepsis s/p cystoscopy, f/u c/s, outpt, id, uro. f/u rmg 2 dyas, rted prn, meds per med rec Referrals: Liu Lopez MD [Staff Provider] -
--- NOTE | 2016-12-04 15:05 | VASCULAR ---
PROCEDURE: Date of procedure: 12/02/2016 Procedure: 1. Placement of a left arm PICC with ultrasound and fluoroscopic guidance, CPT 70440 2. PICC tip confirmation with spot radiograph and is in the superior vena cava Medications: 1 percent lidocaine Total Fluoro time: 2.3 seconds Radiation: 0.25 MGy EBL: 3 cc HISTORY: Infection requiring long-term IV antibiotics TECHNIQUE: Following informed consent and procedure time-out, the patient placed supine on the interventional table and the left arm prepped and draped in the usual sterile fashion. Ultrasound showed a patent and compressible left basilic vein. After the skin was anesthetized with lidocaine, the basilic vein was accessed with micro micropuncture technique using ultrasound guidance. A guidewire was then advanced under fluoroscopic guidance into the superior vena cava. An image documenting ultrasound guidance for vascular access was permanently saved. The length of a single-lumen 4 [place] PICC was trimmed to 39 cm and advanced through a peel-away sheath. The PICC was position with tip of PICC confirm a spot radiograph the superior vena cava. The PICC was secured to the patient's skin. The PICC was flushed. A biopatch and sterile dressing was applied. IMPRESSION: Placement of a single-lumen 4 [place] PICC left basilic vein trimmed to 39 cm. The tip of the PICC is confirmed with spot radiograph and is in the superior vena cava.
[2016-12-07 14:33] VITALS: O2SAT 100
== END 2016-12-02 17:44 | disposition home or self-care (01) | DRG 690 ==
LOC: H.ER 13:14 → H.ERHOLD 16:20 → H.MEDSURG1 17:33
PROVIDERS: ADMIT Family Medicine; ATTEND Family Medicine
PROC: 02HV33Z Insertion of Infusion Device into Superior Vena Cava, Percutaneous Approach (ICD-10-PCS; principal; 2016-12-02)
DX: N39.0 Urinary tract infection, site not specified (principal); N17.9 Acute kidney failure, unspecified; E86.0 Dehydration; B96.1 Klebsiella pneumoniae [K. pneumoniae] as the cause of diseases classified elsewhere